=== PATIENT | female | born 1960 | race Caucasian/White ===

== ENCOUNTER 2017-11-30 20:37 | Day surgery (SDC) | payer BC, OTHER ==
[2017-11-30] MEDS ORDERED: Ondansetron 4 MG/2 ML SDV IVPUSH ONE (21:23)
[2017-11-30] MEDS ORDERED: Morphine 4 MG/ML Syringe IVPUSH ONE (21:23)
[2017-11-30] MEDS ORDERED: Sodium Chloride 0.9% 1,000 ML IV ONE (21:24)
[2017-11-30] MEDS: Sodium Chloride 0.9% 10 ML Syringe FLUSH PRN (21:35)
[2017-11-30] MEDS ORDERED: HYDROmorphone 0.5 MG/0.5 ML SYRINGE IVPUSH ONE (22:22)
--- NOTE | 2017-11-30 22:53 | EDM.PDOC ---
<Darron Daly - Last Filed: 12/01/17 02:13> ED HPI GENERAL MEDICAL PROBLEM - General Chief Complaint: Gastrointestinal Problem Stated Complaint: VOMITING RIB PAIN Time Seen by Provider: 11/30/17 21:20 - Related Data Allergies Allergy/AdvReac Type Severity Reaction Status Date / Time No Known Allergies Allergy Verified 11/30/17 20:49 Home Meds: Home Meds FLUoxetine HCl [Prozac] 20 mg PO DAILY 11/30/17 [History] Fenofibrate Nanocrystallized [Tricor] 48 mg PO DAILY 11/30/17 [History] Furosemide [Lasix] 10 mg PO DAILY 11/30/17 [History] Rosuvastatin [Crestor] 10 mg PO DAILY 11/30/17 [History] Course - Vital Signs Last Recorded V/S: Last Vital Signs Temp 36.8 C 12/01/17 09:00 Pulse 101 H 12/01/17 08:12 Resp 16 12/01/17 09:40 BP 101/54 L 12/01/17 09:40 Pulse Ox 97 12/01/17 09:40 - Orders/Labs/Meds Orders: Active Orders 24 hr Category Date Time Status Patient Status [ADT] Routine ADT 12/01/17 06:52 Active Communication Order [RC] ROUTINE Care 12/01/17 06:38 Active Communication Order [RC] ROUTINE Care 12/01/17 08:13 Active Cooling Warming Measures [RC] ASDIRECTED Care 12/01/17 08:13 Active EKG 12 Lead [EKG Documentation Completion] [RC] STAT Care 11/30/17 23:26 Active Notify Provider [RC] ASDIRECTED Care 12/01/17 08:13 Active Oxygen Therapy [RC] ASDIRECTED Care 12/01/17 08:13 Active Patient to Empty Bladder [RC] ASDIRECTED Care 12/01/17 06:38 Active Peripheral IV Care [RC] . DIRECTED Care 11/30/17 21:24 Active Peripheral IV Care [RC] . DIRECTED Care 12/01/17 06:40 Active Pulse Oximetry [RC] ASDIRECTED Care 12/01/17 08:13 Active Ready for Discharge [RC] PER UNIT ROUTINE Care 12/01/17 08:03 Active Verify Patient Consent Obtain [RC] ASDIRECTED Care 12/01/17 06:38 Active Vital Signs [RC] Q15M Care 12/01/17 08:13 Active Peripheral IV Insertion Adult [OM.PC] Routine Oth 12/01/17 06:38 Ordered Peripheral IV Insertion Adult [OM.PC] Stat Oth 11/30/17 21:23 Ordered Schedule Procedure [COMM] Routine Oth 12/01/17 06:38 Ordered Resuscitation Status Routine Resus Stat 12/01/17 06:38 Ordered Labs: Laboratory Tests 11/30/17 11/30/17 11/30/17 Range/Units 21:01 21:01 21:01 WBC 9.03 (3.98-10.04) K/mm3 RBC 4.82 (3.98-5.22) M/mm3 Hgb 14.2 (11.2-15.7) gm/L Hct 42.9 (34.1-44.9) % MCV 89.0 (79.4-94.8) fl MCH 29.5 (25.6-32.2) pg MCHC 33.1 (32.2-35.5) g/dl RDW Std Deviation 42.6 (36.4-46.3) fL Plt Count 242 (182-369) K/mm3 MPV 9.9 (9.4-12.3) fl Neutrophils % (Manual) 85 H (40-60) % Band Neutrophils % 0 (0-10) % Lymphocytes % (Manual) 14 L (20-40) % Atypical Lymphs % 0 % Monocytes % (Manual) 1 L (2-10) % Eosinophils % (Manual) 0 L (0.7-5.8) % Basophils % (Manual) 0 L (0.1-1.2) Platelet Estimate Adequate Plt Morphology Comment Normal Anisocytosis 1+ slight RBC Morph Comment Not Reportable Sodium 146 H (136-145) mEq/L Potassium 3.5 (3.5-5.1) mEq/L Chloride 109 H (98-107) mEq/L Carbon Dioxide 22 (21-32) mEq/L Anion Gap 18.5 H (5-15) BUN 15 (7-18) mg/dL Creatinine 1.0 (0.55-1.02) mg/dL Est Cr Clr Drug Dosing 54.51 mL/min Estimated GFR (MDRD) 57 (>60) mL/min BUN/Creatinine Ratio 15.0 (14-18) Glucose 138 H (74-106) mg/dL Calcium 9.8 (8.5-10.1) mg/dL Total Bilirubin 0.4 (0.2-1.0) mg/dL GGT 21 (5-55) U/L AST 44 H (15-37) U/L ALT 63 H (14-59) U/L Alkaline Phosphatase 65 (46-116) U/L Troponin I (0.00-0.056) ng/mL C-Reactive Protein < 0.2 (<1.0) mg/dL Total Protein 7.9 (6.4-8.2) g/dl Albumin 4.2 (3.4-5.0) g/dl Globulin 3.7 gm/dL Albumin/Globulin Ratio 1.1 (1-2) Lipase 138 (73-393) U/L H. pylori IgG Antibody (NEGATIVE) 11/30/17 11/30/17 Range/Units 21:01 21:01 WBC (3.98-10.04) K/mm3 RBC (3.98-5.22) M/mm3 Hgb (11.2-15.7) gm/L Hct (34.1-44.9) % MCV (79.4-94.8) fl MCH (25.6-32.2) pg MCHC (32.2-35.5) g/dl RDW Std Deviation (36.4-46.3) fL Plt Count (182-369) K/mm3 MPV (9.4-12.3) fl Neutrophils % (Manual) (40-60) % Band Neutrophils % (0-10) % Lymphocytes % (Manual) (20-40) % Atypical Lymphs % % Monocytes % (Manual) (2-10) % Eosinophils % (Manual) (0.7-5.8) % Basophils % (Manual) (0.1-1.2) Platelet Estimate Plt Morphology Comment Anisocytosis RBC Morph Comment Sodium (136-145) mEq/L Potassium (3.5-5.1) mEq/L Chloride (98-107) mEq/L Carbon Dioxide (21-32) mEq/L Anion Gap (5-15) BUN (7-18) mg/dL Creatinine (0.55-1.02) mg/dL Est Cr Clr Drug Dosing mL/min Estimated GFR (MDRD) (>60) mL/min BUN/Creatinine Ratio (14-18) Glucose (74-106) mg/dL Calcium (8.5-10.1) mg/dL Total Bilirubin (0.2-1.0) mg/dL GGT (5-55) U/L AST (15-37) U/L ALT (14-59) U/L Alkaline Phosphatase (46-116) U/L Troponin I < 0.017 (0.00-0.056) ng/mL C-Reactive Protein (<1.0) mg/dL Total Protein (6.4-8.2) g/dl Albumin (3.4-5.0) g/dl Globulin gm/dL Albumin/Globulin Ratio (1-2) Lipase (73-393) U/L H. pylori IgG Antibody Negative (NEGATIVE) Meds: Medications Discontinued Medications Generic Name Dose Route Start Last Admin Trade Name Freq PRN Reason Stop Dose Admin Bupivacaine HCl/Epinephrine Bitart Confirm 12/01/17 06:45 12/01/17 07:28 Marcaine 0.5%/Epinephrine 1:200,000 Administered 12/01/17 06:46 5 ml Dose Administration 50 ml .ROUTE .STK-MED ONE Al Hydroxide/Mg Hydroxide 30 0 ml 11/30/17 23:19 11/30/17 23:27 ml/ Lidocaine HCl 15 ml PO 11/30/17 23:20 45 ml ONETIME ONE Administration Dexamethasone Confirm 12/01/17 07:11 Dexamethasone Administered 12/01/17 07:12 Dose 4 mg .ROUTE .STK-MED ONE Diatrizoate Meglum/Diatrizoate Sod 90 ml 12/01/17 00:56 12/01/17 00:59 Gastrografin 37% PO 12/01/17 00:57 90 ml ONETIME ONE Administration Diphenhydramine HCl 25 mg 12/01/17 08:13 Benadryl IVPUSH 12/01/17 18:00 Q6H PRN Pruritis Ephedrine Sulfate Confirm 12/01/17 07:28 Ephedrine In Ns Administered 12/01/17 07:29 Dose 25 mg .ROUTE .STK-MED ONE Ertapenem Confirm 12/01/17 07:30 Invanz Administered 12/01/17 07:31 Dose 1 gm .ROUTE .STK-MED ONE Famotidine 20 mg 11/30/17 23:18 11/30/17 23:27 Pepcid IVPUSH 11/30/17 23:19 20 mg ONETIME ONE Administration Fentanyl Confirm 12/01/17 07:10 Sublimaze Administered 12/01/17 07:11 Dose 250 mcg .ROUTE .STK-MED ONE Fentanyl 50 mcg 12/01/17 08:13 Sublimaze IVPUSH 12/01/17 18:00 Q5M PRN Pain Glycopyrrolate Confirm 12/01/17 07:53 Administered 12/01/17 07:54 Dose 1 mg .ROUTE .STK-MED ONE Hydromorphone HCl 0.5 mg 11/30/17 22:22 11/30/17 22:30 Dilaudid IVPUSH 11/30/17 22:23 0.5 mg ONETIME ONE Administration Hydromorphone HCl 1 mg 12/01/17 01:13 12/01/17 01:20 Dilaudid IVPUSH 12/01/17 01:14 Not Given ONETIME ONE Hydromorphone HCl 0.5 mg 12/01/17 01:18 12/01/17 02:39 Dilaudid IVPUSH 12/01/17 01:19 Not Given ONETIME ONE Hydromorphone HCl 1 mg 12/01/17 01:18 12/01/17 01:28 Dilaudid IVPUSH 12/01/17 01:19 1 mg ONETIME ONE Administration Hydromorphone HCl 0.5 mg 12/01/17 02:36 12/01/17 06:26 Dilaudid IVPUSH 0.5 mg Q1H PRN Administration Pain Hydromorphone HCl Confirm 12/01/17 07:37 Dilaudid Administered 12/01/17 07:38 Dose 1 mg .ROUTE .STK-MED ONE Hydromorphone HCl 0.5 mg 12/01/17 09:15 Dilaudid IVPUSH 12/01/17 09:16 ONETIME ONE Sodium Chloride 1,000 mls @ 999 mls/hr 11/30/17 21:24 11/30/17 21:35 Normal Saline IV 11/30/17 22:24 999 mls/hr ONETIME ONE Administration Sodium Chloride 1,000 mls @ 150 mls/hr 12/01/17 01:15 12/01/17 01:28 Normal Saline IV 150 mls/hr ASDIRECTED GINA Administration Cefoxitin Sodium 2 gm/ Premix 50 mls @ 100 mls/hr 12/01/17 02:07 12/01/17 02: 17 IV 12/01/17 02:36 100 mls/hr ONETIME ONE Administration Cefoxitin Sodium 2 gm/ Premix 50 mls @ 100 mls/hr 12/01/17 08:15 IV Q6H GINA Sodium Chloride 1,000 mls @ 125 mls/hr 12/01/17 06:45 Normal Saline IV 12/01/17 23:00 ASDIRECTED GINA Lidocaine HCl Confirm 12/01/17 07:11 Xylocaine-Mpf 1% Administered 12/01/17 07:12 Dose 2 mls @ as directed .ROUTE .STK-MED ONE Lactated Ringer's Confirm 12/01/17 07:54 Ringers, Lactated Administered 12/01/17 07:55 Dose 1,000 mls @ as directed .ROUTE .STK-MED ONE Iopamidol 125 ml 12/01/17 00:56 12/01/17 00:59 Isovue-300 (61%) IVPUSH 12/01/17 00:57 125 ml ONETIME ONE Administration Ketorolac Tromethamine Confirm 12/01/17 07:54 Toradol Administered 12/01/17 07:55 Dose 30 mg .ROUTE .STK-MED ONE Lidocaine/Epinephrine Confirm 12/01/17 06:45 12/01/17 07:28 Xylocaine 1% With Epinephrine 1:100,000 Administered 12/01/17 06:46 5 ml Dose Administration 20 ml .ROUTE .STK-MED ONE Meperidine HCl 12.5 mg 12/01/17 08:13 Demerol IVPUSH 12/01/17 18:00 ONETIME PRN Shivering Midazolam HCl Confirm 12/01/17 07:10 Versed 1 Mg/Ml Administered 12/01/17 07:11 Dose 2 mg .ROUTE .STK-MED ONE Morphine Sulfate 4 mg 11/30/17 21:23 11/30/17 21:34 Morphine IVPUSH 11/30/17 21:24 4 mg ONETIME ONE Administration Neostigmine Methylsulfate Confirm 12/01/17 07:53 Neostigmine Administered 12/01/17 07:54 Dose 5 mg .ROUTE .STK-MED ONE Ondansetron HCl 4 mg 11/30/17 21:23 11/30/17 21:35 Zofran IVPUSH 11/30/17 21:24 4 mg ONETIME ONE Administration Ondansetron HCl 4 mg 12/01/17 02:37 Zofran IVPUSH Q6H PRN Nausea Ondansetron HCl Confirm 12/01/17 07:11 Zofran Administered 12/01/17 07:12 Dose 4 mg .ROUTE .STK-MED ONE Ondansetron HCl 4 mg 12/01/17 08:13 Zofran IVPUSH 12/01/17 18:00 ONETIME PRN Nausea/Vomiting Propofol Confirm 12/01/17 07:10 Diprivan 20 Ml Administered 12/01/17 07:11 Dose 200 mg .ROUTE .STK-MED ONE Rocuronium Pierce Confirm 12/01/17 07:11 Zemuron Administered 12/01/17 07:12 Dose 50 mg .ROUTE .STK-MED ONE Sodium Chloride 10 ml 11/30/17 21:23 12/01/17 00:59 Saline Flush FLUSH 10 ml ASDIRECTED PRN Administration Keep Vein Open Sodium Chloride 10 ml 12/01/17 06:38 Saline Flush FLUSH 12/01/17 18:00 ASDIRECTED PRN Keep Vein Open Succinylcholine Chloride Confirm 12/01/17 07:11 Succinylcholine In Ns Pf Administered 12/01/17 07:12 Dose 100 mg .ROUTE .STK-MED ONE - Re-Assessments/Exams Free Text/Narrative Re-Assessment/Exam: 12/01/17 02:13 Taking over for Demi. The patient is scheduled for a CT scan. When she came back for the scan she had more pain and it moves to her RLQ, so I ordered dilaudid and more NS at 150mL/hr. Vrad called and the patient had a CT that showed small hiatal hernia. Oral contrast within the distal esophagus consistent with gastroesophageal reflux. Findings consistent with acute appendicitis without perforation or abscess. I called Dr Portillo and we will admit her and start mefoxin 2 grams Q6 hrs and he will see her in the morning for surgery. It is 2 in the morning and it would be better to have a fresh crew in the morning. Her pain is much better now. I will write bridging orders. Her EKG showed a NSR with no acute changes. Her troponin is negative. 12/01/17 02:17 Departure - Departure Time of Disposition: 02:20 Disposition: Refer to Observation Condition: Fair Clinical Impression: Appendicitis - Discharge Information - My Orders Last 24 Hours: My Active Orders 11/30/17 21:23 Peripheral IV Insertion Adult [OM.PC] Stat 11/30/17 21:24 Peripheral IV Care [RC] . DIRECTED 11/30/17 23:26 EKG 12 Lead [EKG Documentation Completion] [RC] STAT - Assessment/Plan Last 24 Hours: My Active Orders 11/30/17 21:23 Peripheral IV Insertion Adult [OM.PC] Stat 11/30/17 21:24 Peripheral IV Care [RC] . DIRECTED 11/30/17 23:26 EKG 12 Lead [EKG Documentation Completion] [RC] STAT <Demi Pace Padmini - Last Filed: 12/01/17 19:51> ED HPI GENERAL MEDICAL PROBLEM - General Source of Information: Reports: Patient History Limitations: Reports: No Limitations - History of Present Illness INITIAL COMMENTS - FREE TEXT/NARRATIVE: 57-year-old female presents for evaluation and treatment of upper abdominal pain radiating to her back and vomiting. Reports that symptoms started around 1300 today. Reports that she has been vomiting about once every 15 minutes. Reports severe upper abdominal pain radiating into her back. She also reports she's been having some mild diarrhea recently. No chest pain, shortness of breath, lightheadedness, dizziness or syncope. Reports that the vomiting seems to alleviate her pain momentarily. States that she was ill with cold symptoms recently but these have now resolved. Patient was in [place] for approximately 6 weeks. He spent the first 4 weeks in a village in the [place] 2 weeks at a resort. She just returned home on Wednesday. She denies any chest pain, shortness of breath, leg pain or swelling. Patient reports that 2-3 years ago she did have similar symptoms after coming home from [place]. Reports that these resolved on their own without intervention. Onset: Today Location: Reports: Abdomen Upper Abdominal Pain Score (Numeric/FACES): 8 ED ROS GENERAL - Review of Systems Review Of Systems: See Below Constitutional: Denies: Fever Respiratory: Denies: Shortness of Breath, Cough Cardiovascular: Denies: Chest Pain, Lightheadedness, Syncope GI/Abdominal: Reports: Abdominal Pain (upper abdomen), Diarrhea, Nausea, Vomiting Musculoskeletal: Reports: Back Pain. Denies: Leg Pain Neurological: Denies: Dizziness, Syncope ED EXAM, GI/ABD - Physical Exam Exam: See Below Exam Limited By: No Limitations General Appearance: Alert, WD/WN, Moderate Distress Ears: Normal External Exam Nose: Normal Inspection Throat/Mouth: Normal Inspection, Normal Lips, Normal Voice, No Airway Compromise Respiratory/Chest: No Respiratory Distress, Lungs Clear, Normal Breath Sounds Cardiovascular: Normal Peripheral Pulses, Regular Rate, Rhythm, No Murmur GI/Abdominal Exam: Normal Bowel Sounds, Soft, Rebound, Tender (RUQ, + ramires's sign). No: Distended Neurological: Alert, Oriented, Normal Cognition Psychiatric: Normal Affect, Normal Mood Skin Exam: Warm, Dry, Normal Color Course - Radiology Interpretation Free Text/Narrative:: right upper quadrant abd ultrasound impression per vrad: mild hepatic steatosis. no sonographic findings of acute cholecystitis. - Re-Assessments/Exams Free Text/Narrative Re-Assessment/Exam: 11/30/17 23:24 I reviewed the ultrasound and lab studies with the patient. She seems to be much more comfortable. She did complain of worsening pain earlier in nursing staff gave her 0.5 mg IV Dilaudid. At this point she is denying any pain in her back. Reporting pain only in her abdomen. States it feels like a soreness. Questions if this is just soreness from her emesis. Etiology for her vomiting and abdominal pain has not been discovered thus far. We will obtain a CT of her abdomen to rule out additional etiology such as diverticulitis. She denies any previous abdominal surgeries. She again denies to me any chest pain, shortness of breath or any pain in her legs. Case discussed with Dr. Daly. She will be left in his care as it is the end of my shift.
[2017-11-30] MEDS ORDERED: Famotidine 20 MG/2 ML SDV IVPUSH ONE (23:18)
[2017-11-30] MEDS ORDERED: Alum Hydrox/Mag Hydrox/Simeth 30 ML, Lidocaine 2% 15 ML PO ONE ×2 (23:19)
[2017-12-01] MEDS ORDERED: Iopamidol 612 MG/ML 150 ML Bottle IVPUSH ONE (00:56)
[2017-12-01] MEDS ORDERED: Diatrizoate Meglumine/Diatrizoate Sodium 37% 120 ML Bottle PO ONE (00:56)
[2017-12-01] MEDS: Sodium Chloride 0.9% 10 ML Syringe FLUSH PRN (00:59)
[2017-12-01] MEDS ORDERED: HYDROmorphone 1 MG/ML Syringe IVPUSH ONE (01:13)
[2017-12-01] MEDS ORDERED: Sodium Chloride 0.9% 1,000 ML IV SCH ×2 (01:15→06:45)
[2017-12-01] MEDS ORDERED: HYDROmorphone 0.5 MG/0.5 ML SYRINGE IVPUSH ONE ×2 (01:18)
[2017-12-01] MEDS ORDERED: cefOXitin 2 GM in Premix Bag 1 BAG IV ONE (02:07)
[2017-12-01] MEDS ORDERED: Ondansetron 4 MG/2 ML SDV IVPUSH PRN ×2 (02:37→08:13)
[2017-12-01] MEDS: HYDROmorphone 0.5 MG/0.5 ML SYRINGE IVPUSH PRN ×2 (02:51→06:26)
[2017-12-01] MEDS ORDERED: Sodium Chloride 0.9% 10 ML Syringe FLUSH PRN (06:38)
--- NOTE | 2017-12-01 06:44 | PCM.HP ---
H&P History of Present Illness - General Date of Service: 12/01/17 Source of Information: Patient History Limitations: Reports: No Limitations - History of Present Illness Initial Comments - Free Text/Narative: 57-year-old female was in her usual state of good health until yesterday around 1 PM when after lunch she experienced epigastric abdominal discomfort. This was associated with profound nausea followed by emesis. Over the next several hours she said the pain moved from the epigastrium to her right lower quadrant where it increased in intensity and was worsened with activity. Failing to improve she went to the emergency room last night where a CT scan of her abdomen was performed and this showed images compatible with acute appendicitis. Her temperature and white blood cell count were normal. I was asked to see her for surgery. Upper Abdominal Pain Score (Numeric/FACES): 8 - Related Data Allergies/Adverse Reactions: Allergies Allergy/AdvReac Type Severity Reaction Status Date / Time No Known Allergies Allergy Verified 11/30/17 20:49 Home Medications: Home Meds FLUoxetine HCl [Prozac] 20 mg PO DAILY 11/30/17 [History] Fenofibrate Nanocrystallized [Tricor] 48 mg PO DAILY 11/30/17 [History] Furosemide [Lasix] 10 mg PO DAILY 11/30/17 [History] Rosuvastatin [Crestor] 10 mg PO DAILY 11/30/17 [History] Past Medical History Cardiovascular History: Reports: High Cholesterol Endocrine/Metabolic History: Reports: Hypothyroidism - Past Surgical History Female Surgical History: Reports: Endometrial Ablation, Hysterectomy Social & Family History - Family History Family Medical History: Noncontributory - Tobacco Use Smoking Status *Q: Never Smoker - Recreational Drug Use Recreational Drug Use: No H&P Review of Systems - Review of Systems: Review Of Systems: ROS reveals no pertinent complaints other than HPI. Exam - Exam Exam: See Below - Vital Signs Vital Signs: Last Vital Signs Temp 36.3 C 11/30/17 20:50 Pulse 56 L 11/30/17 20:50 Resp 17 11/30/17 20:50 BP 139/70 11/30/17 20:50 Pulse Ox 98 11/30/17 20:50 Weight: 83.915 kg - Exam General: Alert, Oriented, Cooperative HEENT: EOMI, Hearing Intact Neck: Supple, Trachea Midline Lungs: Clear to Auscultation, Normal Respiratory Effort Cardiovascular: Regular Rate, Regular Rhythm, Normal S1, Normal S2 GI/Abdominal Exam: Normal Bowel Sounds, Tender (McBurney's point) (Female) Exam: Deferred Rectal (Female) Exam: Deferred Extremities: Normal Inspection, Non-Tender Skin: Warm, Dry, Intact Neuro Extensive - Mental Status: Alert, Oriented x3, Normal Mood/Affect, Normal Cognition Psychiatric: Alert, Normal Affect, Normal Mood - Patient Data Lab Results Last 24 hrs: Laboratory Results - last 24 hr 11/30/17 11/30/17 11/30/17 Range/Units 21:01 21: 21: WBC 9.03 (3.98-10.04) K/mm3 RBC 4.82 (3.98-5.22) M/mm3 Hgb 14.2 (11.2-15.7) gm/L Hct 42.9 (34.1-44.9) % MCV 89.0 (79.4-94.8) fl MCH 29.5 (25.6-32.2) pg MCHC 33.1 (32.2-35.5) g/dl RDW Std Deviation 42.6 (36.4-46.3) fL Plt Count 242 (182-369) K/mm3 MPV 9.9 (9.4-12.3) fl Neutrophils % (Manual) 85 H (40-60) % Band Neutrophils % 0 (0-10) % Lymphocytes % (Manual) 14 L (20-40) % Atypical Lymphs % 0 % Monocytes % (Manual) 1 L (2-10) % Eosinophils % (Manual) 0 L (0.7-5.8) % Basophils % (Manual) 0 L (0.1-1.2) Platelet Estimate Adequate Plt Morphology Comment Normal Anisocytosis 1+ slight RBC Morph Comment Not Reportable Sodium 146 H (136-145) mEq/L Potassium 3.5 (3.5-5.1) mEq/L Chloride 109 H (98-107) mEq/L Carbon Dioxide 22 (21-32) mEq/L Anion Gap 18.5 H (5-15) BUN 15 (7-18) mg/dL Creatinine 1.0 (0.55-1.02) mg/dL Est Cr Clr Drug Dosing 54.51 mL/min Estimated GFR (MDRD) 57 (>60) mL/min BUN/Creatinine Ratio 15.0 (14-18) Glucose 138 H (74-106) mg/dL Calcium 9.8 (8.5-10.1) mg/dL Total Bilirubin 0.4 (0.2-1.0) mg/dL GGT 21 (5-55) U/L AST 44 H (15-37) U/L ALT 63 H (14-59) U/L Alkaline Phosphatase 65 (46-116) U/L Troponin I (0.00-0.056) ng/mL C-Reactive Protein < 0.2 (<1.0) mg/dL Total Protein 7.9 (6.4-8.2) g/dl Albumin 4.2 (3.4-5.0) g/dl Globulin 3.7 gm/dL Albumin/Globulin Ratio 1.1 (1-2) Lipase 138 (73-393) U/L H. pylori IgG Antibody (NEGATIVE) 11/30/17 11/30/17 Range/Units 21:01 21:01 WBC (3.98-10.04) K/mm3 RBC (3.98-5.22) M/mm3 Hgb (11.2-15.7) gm/L Hct (34.1-44.9) % MCV (79.4-94.8) fl MCH (25.6-32.2) pg MCHC (32.2-35.5) g/dl RDW Std Deviation (36.4-46.3) fL Plt Count (182-369) K/mm3 MPV (9.4-12.3) fl Neutrophils % (Manual) (40-60) % Band Neutrophils % (0-10) % Lymphocytes % (Manual) (20-40) % Atypical Lymphs % % Monocytes % (Manual) (2-10) % Eosinophils % (Manual) (0.7-5.8) % Basophils % (Manual) (0.1-1.2) Platelet Estimate Plt Morphology Comment Anisocytosis RBC Morph Comment Sodium (136-145) mEq/L Potassium (3.5-5.1) mEq/L Chloride (98-107) mEq/L Carbon Dioxide (21-32) mEq/L Anion Gap (5-15) BUN (7-18) mg/dL Creatinine (0.55-1.02) mg/dL Est Cr Clr Drug Dosing mL/min Estimated GFR (MDRD) (>60) mL/min BUN/Creatinine Ratio (14-18) Glucose (74-106) mg/dL Calcium (8.5-10.1) mg/dL Total Bilirubin (0.2-1.0) mg/dL GGT (5-55) U/L AST (15-37) U/L ALT (14-59) U/L Alkaline Phosphatase (46-116) U/L Troponin I < 0.017 (0.00-0.056) ng/mL C-Reactive Protein (<1.0) mg/dL Total Protein (6.4-8.2) g/dl Albumin (3.4-5.0) g/dl Globulin gm/dL Albumin/Globulin Ratio (1-2) Lipase (73-393) U/L H. pylori IgG Antibody Negative (NEGATIVE) Result Diagrams: 11/30/17 21:01 11/30/17 21:01 *Q Meaningful Use (ADM) - VTE *Q VTE Criteria *Q: - Stroke *Q Stroke Criteria *Q: - AMI *Q AMI Criteria *Q: - Problem List (1) Appendicitis SNOMED Code(s): 80974526 ICD Code: K37 - UNSPECIFIED APPENDICITIS Status: Acute Priority: High Current Visit: Yes Qualifiers: Appendicitis type: acute appendicitis Acute appendicitis type: with localized peritonitis Qualified Code(s): K35.3 - Acute appendicitis with localized peritonitis Problem List Initiated/Reviewed/Updated: Yes Orders Last 24hrs: Active Orders 24 hr Category Date Time Status Communication Order [RC] ROUTINE Care 12/01/17 06:38 Ordered EKG 12 Lead [EKG Documentation Completion] [RC] STAT Care 11/30/17 23:26 Active Patient to Empty Bladder [RC] ASDIRECTED Care 12/01/17 06:38 Ordered Peripheral IV Care [RC] . DIRECTED Care 11/30/17 21:24 Active Peripheral IV Care [RC] . DIRECTED Care 12/01/17 06:40 Ordered Verify Patient Consent Obtain [RC] ASDIRECTED Care 12/01/17 06:38 Ordered Nothing Per Oral Diet [DIET] Diet 12/01/17 Breakfast Ordered Abdomen Ltd [US] Stat Exams 11/30/17 21:50 Taken Abdomen Pelvis w Cont [CT] Stat Exams 11/30/17 23:18 Taken HYDROmorphone [Dilaudid] Med 12/01/17 02:36 Active 0.5 mg IVPUSH Q1H PRN Ondansetron [Zofran] Med 12/01/17 02:37 Active 4 mg IVPUSH Q6H PRN Sodium Chloride 0.9% @ 125 MLS/HR (1000ml) Med 12/01/17 06:45 Ordered Sodium Chloride 0.9% [Normal Saline] 1,000 ml IV ASDIRECTED Sodium Chloride 0.9% [Normal Saline] 1,000 ml Med 12/01/17 01:15 Active IV ASDIRECTED Sodium Chloride 0.9% [Saline Flush] Med 11/30/17 21:23 Active 10 ml FLUSH ASDIRECTED PRN Sodium Chloride 0.9% [Saline Flush] Med 12/01/17 06:38 Ordered 10 ml FLUSH ASDIRECTED PRN cefOXitin [Mefoxin in Dextrose,Iso-Osm 2 GM/50 ML] 2 gm Med 12/01/17 08:15 Active Premix Bag 1 bag IV Q6H Peripheral IV Insertion Adult [OM.PC] Routine Oth 12/01/17 06:38 Ordered Peripheral IV Insertion Adult [OM.PC] Stat Oth 11/30/17 21:23 Ordered Schedule Procedure [COMM] Routine Oth 12/01/17 06:38 Ordered Resuscitation Status Routine Resus Stat 12/01/17 06:38 Ordered Medication Orders Hydromorphone HCl (Dilaudid) 0.5 mg IVPUSH Q1H PRN PRN Reason: Pain Last Admin: 12/01/17 06:26 Dose: 0.5 mg Admin: 12/01/17 02:51 Dose: 0.5 mg Sodium Chloride (Normal Saline) 1,000 mls @ 150 mls/hr IV ASDIRECTED GINA Last Admin: 12/01/17 01:28 Dose: 150 mls/hr Cefoxitin Sodium 2 gm/ Premix 50 mls @ 100 mls/hr IV Q6H GINA Ondansetron HCl (Zofran) 4 mg IVPUSH Q6H PRN PRN Reason: Nausea Sodium Chloride (Saline Flush) 10 ml FLUSH ASDIRECTED PRN PRN Reason: Keep Vein Open Last Admin: 12/01/17 00:59 Dose: 10 ml Admin: 11/30/17 21:35 Dose: 10 ml Assessment/Plan Comment:: Acute appendicitis. I recommended laparoscopic possible open appendectomy. The patient is familiar with laparoscopic approach and wants to proceed without reservation.
[2017-12-01] MEDS ORDERED: Bupivacaine 0.5%/EPINEPHrine 1:200,000 50 ML MDV ONE (06:45)
[2017-12-01] MEDS ORDERED: Lidocaine 1% with EPINEPHrine 1:100,000 20 ML MDV ONE (06:45)
--- NOTE | 2017-12-01 06:53 | PCM.PREANE ---
Preanesthetic Assessment - Procedure Proposed Procedure: Laparoscopic Appendectomy - Anesthesia/Transfusion/Family Hx Anesthesia History: Prior Anesthesia Without Reaction Family History of Anesthesia Reaction: No Transfusion History: No Prior Transfusion(s) Intubation History: Unknown - Review of Systems General: Other (cold symptoms ) Pulmonary: No Symptoms Cardiovascular: No Symptoms Gastrointestinal: Abdominal Pain, Nausea (not since 0200 this am ), Vomiting ( last vomit at 0200 ) Neurological: No Symptoms Other: Reports: None, Thyroid Problems, Anxiety - Physical Assessment NPO Status Date: 11/30/17 NPO Status Time: 23:30 O2 Sat by Pulse Oximetry: 98 Respiratory Rate: 17 Vital Signs: Last Vital Signs Temp 36.3 C 11/30/17 20:50 Pulse 56 L 11/30/17 20:50 Resp 17 11/30/17 20:50 BP 139/70 11/30/17 20:50 Pulse Ox 98 11/30/17 20:50 Height: 1.65 m Weight: 83.915 kg ASA Class: 2 Mental Status: Alert & Oriented x3 Airway Class: Mallampati = 2 Dentition: Reports: Normal Dentition Thyro-Mental Finger Breadths: 3 Mouth Opening Finger Breadths: 3 ROM/Head Extension: Full Lungs: Clear to Auscultation, Normal Respiratory Effort Cardiovascular: Regular Rate, Regular Rhythm - Lab Values: Laboratory Last Values WBC 9.03 K/mm3 (3.98-10.04) 11/30/17 21: RBC 4.82 M/mm3 (3.98-5.22) 11/30/17 21:01 Hgb 14.2 gm/L (11.2-15.7) 11/30/17 21: Hct 42.9 % (34.1-44.9) 11/30/17 21: MCV 89.0 fl (79.4-94.8) 11/30/17 21: MCH 29.5 pg (25.6-32.2) 11/30/17 21: MCHC 33.1 g/dl (32.2-35.5) 11/30/17 21: RDW Std Deviation 42.6 fL (36.4-46.3) 11/30/17 21: Plt Count 242 K/mm3 (182-369) 11/30/17 21:01 MPV 9.9 fl (9.4-12.3) 11/30/17 21:01 Neutrophils % (Manual) 85 % (40-60) H 11/30/17 21:01 Band Neutrophils % 0 % (0-10) 11/30/17 21: Lymphocytes % (Manual) 14 % (20-40) L 11/30/17 21:01 Atypical Lymphs % 0 % 11/30/17 21: Monocytes % (Manual) 1 % (2-10) L 11/30/17 21:01 Eosinophils % (Manual) 0 % (0.7-5.8) L 11/30/17 21:01 Basophils % (Manual) 0 (0.1-1.2) L 11/30/17 21:01 Platelet Estimate Adequate 11/30/17 21: Plt Morphology Comment Normal 11/30/17 21: Anisocytosis 1+ slight 11/30/17 21: RBC Morph Comment Not Reportable 11/30/17 21: Sodium 146 mEq/L (136-145) H 11/30/17 21: Potassium 3.5 mEq/L (3.5-5.1) 11/30/17 21: Chloride 109 mEq/L (98-107) H 11/30/17 21: Carbon Dioxide 22 mEq/L (21-32) 11/30/17 21: Anion Gap 18.5 (5-15) H 11/30/17 21: BUN 15 mg/dL (7-18) 11/30/17 21: Creatinine 1.0 mg/dL (0.55-1.02) 11/30/17 21: Est Cr Clr Drug Dosing 54.51 mL/min 11/30/17 21: Estimated GFR (MDRD) 57 mL/min (>60) 11/30/17 21: BUN/Creatinine Ratio 15.0 (14-18) 11/30/17 21: Glucose 138 mg/dL (74-106) H 11/30/17 21: Calcium 9.8 mg/dL (8.5-10.1) 11/30/17 21: Total Bilirubin 0.4 mg/dL (0.2-1.0) 11/30/17 21: GGT 21 U/L (5-55) 11/30/17 21:01 AST 44 U/L (15-37) H 11/30/17 21:01 ALT 63 U/L (14-59) H 11/30/17 21:01 Alkaline Phosphatase 65 U/L (46-116) 11/30/17 21:01 Troponin I < 0.017 ng/mL (0.00-0.056) 11/30/17 21:01 C-Reactive Protein < 0.2 mg/dL (<1.0) 11/30/17 21:01 Total Protein 7.9 g/dl (6.4-8.2) 11/30/17 21:01 Albumin 4.2 g/dl (3.4-5.0) 11/30/17 21:01 Globulin 3.7 gm/dL 11/30/17 21:01 Albumin/Globulin Ratio 1.1 (1-2) 11/30/17 21:01 Lipase 138 U/L (73-393) 11/30/17 21:01 H. pylori IgG Antibody Negative (NEGATIVE) 11/30/17 21:01 - Allergies Allergies/Adverse Reactions: Allergies Allergy/AdvReac Type Severity Reaction Status Date / Time No Known Allergies Allergy Verified 11/30/17 20:49 - Blood Blood Available: No Product(s) Available: None - Anesthesia Plan Pre-Op Medication Ordered: None - Acknowledgements Anesthesia Type Planned: General Anesthesia Pt an Appropriate Candidate for the Planned Anesthesia: Yes Alternatives and Risks of Anesthesia Discussed w Pt/Guardian: Yes Pt/Guardian Understands and Agrees with Anesthesia Plan: Yes PreAnesthesia Questionnaire Cardiovascular History: Reports: High Cholesterol Endocrine/Metabolic History: Reports: Hypothyroidism - Past Surgical History Female Surgical History: Reports: Endometrial Ablation, Hysterectomy - SUBSTANCE USE Smoking Status *Q: Never Smoker Recreational Drug Use History: No - HOME MEDS Home Medications: Home Meds FLUoxetine HCl [Prozac] 20 mg PO DAILY 11/30/17 [History] Fenofibrate Nanocrystallized [Tricor] 48 mg PO DAILY 11/30/17 [History] Furosemide [Lasix] 10 mg PO DAILY 11/30/17 [History] Rosuvastatin [Crestor] 10 mg PO DAILY 11/30/17 [History] - CURRENT (IN HOUSE) MEDS Current Meds: Current Medications Hydromorphone HCl (Dilaudid) 0.5 mg IVPUSH Q1H PRN PRN Reason: Pain Last Admin: 12/01/17 06:26 Dose: 0.5 mg Sodium Chloride (Normal Saline) 1,000 mls @ 150 mls/hr IV ASDIRECTED [facility] Last Admin: 12/01/17 01:28 Dose: 150 mls/hr Cefoxitin Sodium 2 gm/ Premix 50 mls @ 100 mls/hr IV Q6H [facility] Sodium Chloride (Normal Saline) 1,000 mls @ 125 mls/hr IV ASDIRECTED [facility] Ondansetron HCl (Zofran) 4 mg IVPUSH Q6H PRN PRN Reason: Nausea Sodium Chloride (Saline Flush) 10 ml FLUSH ASDIRECTED PRN PRN Reason: Keep Vein Open Last Admin: 12/01/17 00:59 Dose: 10 ml Sodium Chloride (Saline Flush) 10 ml FLUSH ASDIRECTED PRN PRN Reason: Keep Vein Open Discontinued Medications Al Hydroxide/Mg Hydroxide 30 (ml/ Lidocaine HCl 15 ml) 0 ml PO ONETIME ONE Stop: 11/30/17 23:20 Last Admin: 11/30/17 23:27 Dose: 45 ml Diatrizoate Meglum/Diatrizoate Sod (Gastrografin 37%) 90 ml PO ONETIME ONE Stop: 12/01/17 00:57 Last Admin: 12/01/17 00:59 Dose: 90 ml Famotidine (Pepcid) 20 mg IVPUSH ONETIME ONE Stop: 11/30/17 23:19 Last Admin: 11/30/17 23:27 Dose: 20 mg Hydromorphone HCl (Dilaudid) 0.5 mg IVPUSH ONETIME ONE Stop: 11/30/17 22:23 Last Admin: 11/30/17 22:30 Dose: 0.5 mg Hydromorphone HCl (Dilaudid) 1 mg IVPUSH ONETIME ONE Stop: 12/01/17 01:14 Last Admin: 12/01/17 01:20 Dose: Not Given Hydromorphone HCl (Dilaudid) 0.5 mg IVPUSH ONETIME ONE Stop: 12/01/17 01:19 Last Admin: 12/01/17 02:39 Dose: Not Given Hydromorphone HCl (Dilaudid) 1 mg IVPUSH ONETIME ONE Stop: 12/01/17 01:19 Last Admin: 12/01/17 01:28 Dose: 1 mg Sodium Chloride (Normal Saline) 1,000 mls @ 999 mls/hr IV ONETIME ONE Stop: 11/30/17 22:24 Last Admin: 11/30/17 21:35 Dose: 999 mls/hr Cefoxitin Sodium 2 gm/ Premix 50 mls @ 100 mls/hr IV ONETIME ONE Stop: 12/01/17 02:36 Last Admin: 12/01/17 02:17 Dose: 100 mls/hr Iopamidol (Isovue-300 (61%)) 125 ml IVPUSH ONETIME ONE Stop: 12/01/17 00:57 Last Admin: 12/01/17 00:59 Dose: 125 ml Morphine Sulfate (Morphine) 4 mg IVPUSH ONETIME ONE Stop: 11/30/17 21:24 Last Admin: 11/30/17 21:34 Dose: 4 mg Ondansetron HCl (Zofran) 4 mg IVPUSH ONETIME ONE Stop: 11/30/17 21:24 Last Admin: 11/30/17 21:35 Dose: 4 mg
--- NOTE | 2017-12-01 07:03 | US ---
Limited abdominal ultrasound: Multiple real-time images of the upper right abdomen were obtained. Comparison: No prior abdominal imaging. Liver is slightly echogenic. No focal abnormality is appreciated within the liver. Gallbladder contains no calcified gallstones. No gallbladder wall thickening or biliary duct dilatation is seen. Pancreas appears within normal limits as visualized. Right kidney shows no hydronephrosis or mass. Right kidney has a length of 10.9 cm. Portal vein shows normal hepatopedal flow. Impression: 1. Minimal fatty infiltration within the liver. 2. No additional abnormality is identified on right upper quadrant abdominal ultrasound. Diagnostic code #3 Agree with preliminary report issued by [facility] ([facility] preliminary report dictated on 11/30/17, 11:52 PM Central Time)
[2017-12-01] MEDS ORDERED: fentaNYL 250 MCG/5 ML SDV ONE (07:10)
[2017-12-01] MEDS ORDERED: Propofol 200 MG/20 ML SDV ONE (07:10)
[2017-12-01] MEDS ORDERED: Midazolam 1 MG/ML 2 ML SDV ONE (07:10)
[2017-12-01] MEDS ORDERED: Lidocaine 1% 2 ML ONE (07:11)
[2017-12-01] MEDS ORDERED: Succinylcholine/Normal Saline 100 MG/5 ML Syringe ONE (07:11)
[2017-12-01] MEDS ORDERED: Dexamethasone 4 MG/ML SDV ONE (07:11)
[2017-12-01] MEDS ORDERED: Ondansetron 4 MG/2 ML SDV ONE (07:11)
[2017-12-01] MEDS ORDERED: Rocuronium 50 MG/5 ML Vial ONE (07:11)
--- NOTE | 2017-12-01 07:25 | CT ---
CT abdomen and pelvis Technique: Multiple axial sections were obtained from above the dome of the diaphragm inferiorly through the pubic symphysis. Intravenous and oral contrast was given. Delayed images were also obtained through the bladder. Findings: Dilated appendix is seen. Appendix contains several appendicoliths. Mild surrounding inflammatory change is seen. Findings compatible with appendicitis. Visualized lung bases are clear. Minimal fatty infiltration is seen within the liver. Small hiatal hernia is noted with gastroesophageal reflux of contrast. Spleen appears within normal limits. Adrenal glands show no nodule. Pancreas appears normal. Kidneys show contrast enhancement without hydronephrosis or mass. Gallbladder contains no calcified gallstones. Aorta shows no aneurysmal dilatation. No retroperitoneal adenopathy or mesenteric abnormalities are seen. No pelvic mass or adenopathy is seen. Delayed images show contrast within the distal ureters and within the bladder. No bowel dilatation is seen. Bone window settings were reviewed which show disc space narrowing and vacuum phenomena at L4-L5 and L5-S1 with mild scoliosis. Impression: 1. Findings compatible with appendicitis as noted above. 2. Small hiatal hernia with reflux of contrast into the hiatal hernia and distal esophagus. 3. Other incidental findings as noted above. Diagnostic code #5 Agree with preliminary report issued by [facility] ([facility] preliminary report dictated on 12/01/17, 2:56 AM Central Time)
[2017-12-01] MEDS ORDERED: ePHEDrine/Normal Saline 25 MG/5 ML Syringe ONE (07:28)
[2017-12-01] MEDS ORDERED: Ertapenem 1 GM Vial ONE (07:30)
[2017-12-01] MEDS ORDERED: HYDROmorphone 1 MG/ML Syringe ONE (07:37)
[2017-12-01] MEDS ORDERED: Neostigmine Methylsulfate 1 MG/ML 5 ML Syringe ONE (07:53)
[2017-12-01] MEDS ORDERED: Ketorolac 30 MG/ML SDV ONE (07:54)
[2017-12-01] MEDS ORDERED: Lactated Ringers 1,000 ML ONE (07:54)
--- NOTE | 2017-12-01 08:02 | PCM.OPNOTE ---
- General Post-Op/Procedure Note Date of Surgery/Procedure: 12/01/17 Operative Procedure(s): Laparoscopic appendectomy Findings: Acutely inflamed appendix Pre Op Diagnosis: Acute appendicitis Post-Op Diagnosis: Same Anesthesia Technique: General ET Tube, Local Primary Surgeon: Gurpreet Portillo Pathology: Appendix EBL in mLs: 10 Complications: None Condition: Good Free Text/Narrative:: After adequate general endotracheal tube anesthesia was obtained the patient's abdomen was prepped and draped for laparoscopic appendectomy. After local analgesia was given above the umbilicus a 15 blade was used to make an incision sharply through the skin and subcutaneous tissues and into the linea alba. Metzenbaums scissors were used to enter the abdomen under direct vision. A 12 mm camera port was inserted next followed by CO2 pneumoperitoneum. A 5 mm working ports were placed in the suprapubic region and in the left lower quadrant. Exploration revealed an acutely inflamed slightly distended indurated appendix. I made a window in the appendiceal mesentery. I fired a stapler across the base of the appendix. I fired 2 staple loads across the appendiceal mesentery. The appendix was placed in a bag and removed through the umbilicus. I closed the umbilical port site after irrigating out the right lower quadrant of some small clots With an 0 Vicryl [id number]. The subcutaneous tissues and skin were closed Vicryl as well. Steri-Strips and gauze were used for the dressing. Photographs were taken for the patient and for the medical record.
--- NOTE | 2017-12-01 08:12 | PCM.POSTAN ---
POST ANESTHESIA ASSESSMENT - MENTAL STATUS Mental Status: Alert, Oriented - VITAL SIGNS Pulse Rate: 101 SaO2: 94 Resp Rate: 13 Blood Pressure: 115/53 Temperature: 37.4 C - RESPIRATORY Respiratory Status: Respiratory Rate WNL, Airway Patent, O2 Saturation Stable, Supplemental Oxygen - CARDIOVASCULAR CV Status: Pulse Rate WNL, Blood Pressure Stable - GASTROINTESTINAL GI Status: No Symptoms - PAIN Pain Score: 0 - POST OP HYDRATION Hydration Status: Adequate & Stable
[2017-12-01] MEDS ORDERED: fentaNYL 100 MCG/2 ML SDV IVPUSH PRN (08:13)
[2017-12-01] MEDS ORDERED: Meperidine PF 50 MG/ML Syringe IVPUSH PRN (08:13)
[2017-12-01] MEDS ORDERED: diphenhydrAMINE 50 MG/ML SDV IVPUSH PRN (08:13)
[2017-12-01] MEDS ORDERED: cefOXitin 2 GM in Premix Bag 1 BAG IV SCH (08:15)
[2017-12-01] MEDS ORDERED: HYDROmorphone 0.5 MG/0.5 ML Syringe IVPUSH ONE (09:15)
--- NOTE | 2017-12-01 14:49 | PCM48HPAN ---
Post Anesthesia Note - EVALUATION WITHIN 48HRS OF ANESTHETIC Vital Signs in Normal Range: Yes Patient Participated in Evaluation: Yes Respiratory Function Stable: Yes Airway Patent: Yes Cardiovascular Function Stable: Yes Hydration Status Stable: Yes Pain Control Satisfactory: Yes Nausea and Vomiting Control Satisfactory: Yes Mental Status Recovered: Yes
== END 2017-12-01 10:00 | disposition home or self-care (01) ==
LOC: JD.ED 20:37 → JD.SDS 12-01 06:51
PROVIDERS: ATTEND Surgery
DX: K35.3 Acute appendicitis with localized peritonitis (principal); F41.9 Anxiety disorder, unspecified; E03.9 Hypothyroidism, unspecified; Z79.899 Other long term (current) drug therapy
CPT/HCPCS: 36415; 44970; 74177; 76705; 80053; 82977; 83690; 84484; 85025; 86140; 86677; 93005; 96361; 96365; 96375; 96376; 99285; A9270; J0330; J0694; J1100; J1170; J1335; J1885; J2250; J2270; J2405; J2710; J3010; J7040; J7050; J7120; Q9963; Q9967; 00840; 99284; J2001; J2704